=== PATIENT | male | born 1940 | race Caucasian/White ===

== ENCOUNTER 2016-09-27 09:20 | Day surgery (SDC) | payer MEDICARE ==
[~2016-09-27 09:20] MED LIST: IV START KIT ONE; LACTATED RINGERS 1,000 ML ONE
[2016-09-27] MEDS ORDERED: IV START KIT ONE (09:26)
[2016-09-27] MEDS ORDERED: LACTATED RINGERS 1,000 ML ONE (09:26)
[2016-09-27] MEDS ORDERED: LACTATED RINGERS 1,000 ML IV SCH (09:34)
[2016-09-27] MEDS ORDERED: LIDOCAINE Viscous 2% 15 ML UDCUP PO PRN (09:34)
[2016-09-27] MEDS ORDERED: LIDOCAINE 1% 2 ML VIAL ID PRN (09:34)
[2016-09-27] MEDS ORDERED: ONDANSETRON 4 MG/2ML 2 ML VIAL IV PRN (09:34)
[2016-09-27] MEDS ORDERED: PROPOFOL 20 ML IV ONE (10:35)
--- NOTE | 2016-10-02 12:10 | SURGPATH ---
[facility] [address] [place] [id number] Patient Name: CHEPE PAIGE MR#: [id number] : 1940 Gender: M Specimen #: [id number] Collected: 09/27/2016 Received: 10/01/2016 Reported: 10/02/2016 Submitting Phys: BRIA JETER Copy To Phys: ERAN DICKEY [facility] Clinical History / Pre-Operative Diagnosis: MARTIN'S ESOPHAGUS Specimen Source / Surgical Procedure Performed: #1-ANTRAL X2; #2-GE JUNCTION AT 45 CM X4; #3-GE JUNCTION AT 44 CM X4 Interpretation: 1. STOMACH, ANTRUM, BIOPSY: - GASTRIC MUCOSA WITH NO DIAGNOSTIC ABNORMALITY 2. GE JUNCTION, 45 CM, BIOPSY: - GASTRIC MUCOSA WITH NO DIAGNOSTIC ABNORMALITY 3. GE JUNCTION, 44 CM, BIOPSY: - MILD ACTIVE ESOPHAGITIS - INTESTINAL METAPLASIA, CONSISTENT WITH MARTIN'S ESOPHAGUS, NEGATIVE FOR DYSPLASIA Electronically Signed Out Purnima Lawler M.D. Gross Description: #1 The specimen is received in a formalin filled container labeled with the patient's name and "antral". Two otero biopsies are 0.2 and 0.5 cm. Totally embedded in cassette #1. #2 The specimen is received in a formalin filled container labeled with the patient's name and "GE junction at 45 cm". Four otero biopsies are 0.4-0.6 cm. Totally embedded in cassette #2. #3 The specimen is received in a formalin filled container labeled with the patient's name and "GE junction at 44 cm". Four plata-otero biopsies are 0.3-0.5 cm. Totally embedded in cassette #3. Marla Cabrera Microscopic Description: 1. Sections show fragments of gastric mucosa. There is normal mucosal architecture and no significant inflammation. No Helicobacter organisms are identified and there is no intestinal metaplasia or dysplasia. 2. Sections show fragments of gastric mucosa. There is normal mucosal architecture and no significant inflammation. No Helicobacter organisms are identified and there is no intestinal metaplasia or dysplasia. No squamous mucosa is present in the biopsy. 3. Sections show tissue from the squamocolumnar junction. There is active inflammation along with intestinal metaplasia. There is no dysplasia. 1: [id number] 2: 66849 3: 12958 K22.70
== END 2016-09-27 11:35 | disposition home or self-care (01) ==
LOC: SDC 09:20
PROVIDERS: ATTEND Surgery
PROC: 0DB48ZX Excision of Esophagogastric Junction, Via Natural or Artificial Opening Endoscopic, Diagnostic (ICD-10-PCS; principal; 2016-09-27)
PROC: 0DB68ZX Excision of Stomach, Via Natural or Artificial Opening Endoscopic, Diagnostic (ICD-10-PCS; 2016-09-27)
DX: K22.70 Barrett's esophagus without dysplasia (principal); I25.10 Atherosclerotic heart disease of native coronary artery without angina pectoris; E78.00 Pure hypercholesterolemia, unspecified; I70.90 Unspecified atherosclerosis; H91.90 Unspecified hearing loss, unspecified ear; Z79.82 Long term (current) use of aspirin; Z88.5 Allergy status to narcotic agent